=== PATIENT | female | born 1980 | race Caucasian/White ===

== ENCOUNTER 2017-01-02 09:08 | Emergency (ER) | payer BC, OTHER ==
[2017-01-02] MEDS ORDERED: Meclizine TAB* 12.5 MG PO ONE (10:04)
[2017-01-02] MEDS ORDERED: Ondansetron INJ* 2 MG/ML VIAL IV ONE (10:04)
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
[2017-01-02] MEDS ORDERED: Ondansetron ODT TAB* 4 MG SL PRN (11:30)
[2017-01-02 11:33] LABS: Hematocrit 41 % (35-47); Hemoglobin 13.7 g/dl (12.0-16.0); Mean Corpuscular HGB Conc 34 g/dl (31-36); Mean Corpuscular Hemoglobin 31 pg (27-31); Mean Corpuscular Volume 91 fL (80-97); Mean Platelet Volume 9 um3 (7.4-10.4); Red Blood Count 4.48 10^6/ul (4.0-5.4); Red Cell Distribution Width 14 % (10.5-15); White Blood Count 8.9 10^3/ul (3.5-10.8)
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
[2017-01-02 11:48] LABS: ALT 10 U/L (7-52); AST 14 U/L (13-39); Albumin 4.9 g/dL (3.2-5.2); Alkaline Phosphatase 59 U/L (34-104); Anion Gap 7 mmol/L (2-11); BUN/Creatinine Ratio 14.1 (8-20); Blood Urea Nitrogen 9 mg/dL (6-24); C Reactive Protein < 1.00 mg/L (< 5.00); CO2 Carbon Dioxide 25 mmol/L (22-32); Calcium 9.9 mg/dL (8.6-10.3); Chloride 105 mmol/L (101-111); Creatine Kinase 58 U/L (10-223); Globulin 2.9 g/dL (2-4); Glucose 104 mg/dL (70-100); Magnesium 2.1 mg/dL (1.9-2.7); Sodium 137 mmol/L (133-145); Total Protein 7.8 g/dL (6.4-8.9)
[2017-01-02 12:06] VITALS: BP 109/73
[2017-01-02 12:13] LABS: TSH (Thyroid Stimulating Horm) 1.63 mcIU/mL (0.34-5.60)
== END 2017-01-02 12:05 | disposition home or self-care (01) ==
LOC: ED 09:08
DX: S06.0X9A Concussion with loss of consciousness of unspecified duration, initial encounter (principal); R42 Dizziness and giddiness; Z88.0 Allergy status to penicillin; V89.2XXA Person injured in unspecified motor-vehicle accident, traffic, initial encounter; Y92.9 Unspecified place or not applicable; F17.210 Nicotine dependence, cigarettes, uncomplicated
CPT/HCPCS: 36415; 70450; 80053; 82550; 83605; 83735; 84443; 85025; 86140; 93005; 96374; 99283; A9270-GY; J2405

== ENCOUNTER 2017-10-06 07:13 | Emergency (ER) | payer OTHER ==
[2017-10-06 07:24] VITALS: BP 121/66
[2017-10-06] MEDS ORDERED: Albuterol/Ipratropium NEB.SOL* Albuterol 2.5 MG/Ipratropium 0.5 MG 3 ML INH ONE (07:43)
--- NOTE | 2017-10-06 08:05 | RAD ---
INDICATION: Productive cough COMPARISON: February 15, 2015 TECHNIQUE: PA and lateral dual-energy views were obtained. FINDINGS: Bones/Soft Tissues: There are no acute bony findings. Cardiomediastinal: The cardiomediastinal silhouette is normal. Lungs: There are no infiltrates. Pleura: There are no pleural effusions. Other: None IMPRESSION: NO ACTIVE DISEASE.
--- NOTE | 2017-10-06 08:11 | UC ---
Yadiel Romero Tenzin, scribed for Jen Jefferson MD on 10/06/17 at 0744 . General HPI - HPI Summary HPI Summary: Pt is a 37 years old female presenting to the [facility] complaining of constant cough lasting about 12 days. Past couple nights pt notes that the cough has been heavy with pressure feeling on her chest, wheezing, cough with green and yellow sputum. Pt denies fever, nausea or diarrhea. Pt has only taken some cough drops. _ sick contact. no lightheadedness. no n/v/d. No fever. + sick contact. Pt doesn't smoke and drinks two times a week. Pt is not . No aggravating and alleviating factors were noted. Pt's medications reviewed this visit - History of Current Complaint Chief Complaint: UCGeneralIllness Stated Complaint: COUGH Hx Obtained From: Patient Hx Last Menstrual Period: 3 weeks Onset/Duration: Lasting Days - 12 days. Pain Intensity: 0 - Allergy/Home Medications Allergies/Adverse Reactions: Allergies Allergy/AdvReac Type Severity Reaction Status Date / Time amoxicillin Allergy Rash And Verified 10/06/17 07:19 Itching Home Medications: Home Medications Fluticasone Propionate [Flonase Allergy Relief] 1 spray BOTH NARES DAILY [History Confirmed 10/06/17] Multivitamin [Multivitamins] 1 tab PO DAILY 10/06/17 [History Confirmed 10/06/17 ] PMH/Surg Hx/FS Hx/Imm Hx - Additional Past Medical History Additional PMH: NEGATIVE: [place], [place] Previously Healthy: Yes - Surgical History Surgical History: Yes Surgery Procedure, Year, and Place: 11-12,WISDOM TEETH REMOVAL - Family History Known Family History: Positive: Other - NEGATIVE: ASTHMA. - Social History Occupation: Employed Full-time Lives: With Family Alcohol Use: Weekly Substance Use Type: None Smoking Status (MU): Former Smoker Type: Cigarettes Have You Smoked in the Last Year: No - Immunization History Most Recent Influenza Vaccination: 01/25/14 Most Recent Tetanus Shot: 04/17/14 Most Recent Pneumonia Vaccination: none Review of Systems Constitutional: Negative Skin: Negative Eyes: Negative ENT: Negative Respiratory: Cough - green and yellow sputum. Cardiovascular: Negative Gastrointestinal: Negative Genitourinary: Negative Motor: Negative Neurovascular: Negative Musculoskeletal: Negative Neurological: Negative Psychological: Negative All Other Systems Reviewed And Are Negative: Yes Physical Exam - Summary Physical Exam Summary: Vital Signs Reviewed: Yes A+Ox3, no distress Eyes: Conjunctiva Clear, DEMETRIUS. EOM intact and full ENT: Hearing grossly normal TM x 2 clear, mmoist, turbinates boggy + PND uvula midline, no exudate, no erythema Neck: Positive: Supple Respiratory: Positive: coarse cough, scattered wheeze, rhonchi right upper lobe. No accessory muscle use Cardiovascular: RRR nl s1, s2 no m/r CBT <2 sec abd soft + BS nt/nd no guarding, no distension Musculoskeletal Exam: MOORE x 4 without difficulty Strength Intact, ROM Intact Neurological: Positive: Alert, + sensation throughout Psychological: Positive: Normal Response To Family Skin: Positive: no rash, no ecchymosis Triage Information Reviewed: Yes Vital Signs: Initial Vital Signs Temp 97.8 F 10/06/17 07:20 Pulse 83 10/06/17 07:20 Resp 19 10/06/17 07:20 BP 121/66 10/06/17 07:20 Pulse Ox 99 10/06/17 07:20 Diagnostics - Radiology CHEST X RAY Radiology Interpretation Completed By: Radiologist - Impression: NO ACTIVE DISEASE. Re-Evaluation - Re-Evaluation First Eval Re-Evaluation Time: 08:23 Change: Improved - wheezing resolved, tightness resolved. breathing is much better. + BS throughotu abx MDI sammy soto return precautions secretion precautions Course/Dx - Course Course Of Treatment: pt with ongoing cough, tightness and wheezing worse at night. no OTC cough meds second to sedation. rhonci RU+ wheeze and cough. cxr. neb. reassess - Differential Dx - Multi-Symptom Provider Diagnoses: acute bronchitis Discharge - Sign-Out/Discharge Documenting (check all that apply): Discharge/Admit/Transfer - Discharge Plan Condition: Stable Disposition: HOME Prescriptions: Albuterol HFA INHALER* [Ventolin HFA Inhaler*] 1 puff INH Q4H PRN #1 mdi PRN Reason: cough, wheeze Azithromycin TAB* [Zithromax TAB (Z-NALLELY) 250 mg #6 tabs] 2 tab PO .TODAY, THEN 1 DAILY #1 nallely Benzonatate CAP* [Tessalon 100 MG CAP*] 100 mg PO TID PRN #30 cap PRN Reason: Cough Inhaler, Assist Devices [Aerochamber Mv] 1 each MC Q4HR #1 spacer Patient Education Materials: Acute Bronchitis (ED) Referrals: Ayde Pérez MD [Primary Care Provider] - Additional Instructions: - Take antibiotics exactly as prescribed until gone -Use your albuterol puffer - 2 puffs ever 4 hours for the next 2 days - then as needed -Stay well hydrated - avoid excess caffeine and all alcohol - eat regular, healthy meals - It is okay to take over the counter cough and decongestant medication as needed (Robitussin, Dayquil, Nyquil) - These infections are spread by oral secretions. Do not share eating or drinking utensils. Frequent hand washing is important. Clean items that may get your secretions on them such as cell phones, ipads, computer mouse, television remotes. Once you have been on antbiotics for 2 days, change your pillowcase and your toothbrush. -Call your doctor, return here or go to the emergency department with any questions or concerns - Billing Disposition and Condition Condition: STABLE Disposition: Home The documentation as recorded by the Yadiel [email or web address] Tenzin accurately reflects the service I personally performed and the decisions made by me, Jen Jefferson MD.
== END 2017-10-06 08:34 | disposition home or self-care (01) ==
LOC: UCEAST 07:13
DX: J20.9 Acute bronchitis, unspecified (principal); Z88.0 Allergy status to penicillin; Z87.891 Personal history of nicotine dependence
CPT/HCPCS: 71046; 99212; A9270-GY; G0463

== ENCOUNTER 2018-07-09 15:19 | Emergency (ER) | payer OTHER ==
[2018-07-09 16:26] VITALS: BP 110/66
[2018-07-09 17:09] LABS: Influenza A Molecular NEGATIVE (Negative); Influenza B Molecular NEGATIVE (Negative)
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
== END 2018-07-09 17:47 | disposition home or self-care (01) ==
LOC: UCEAST 15:19
DX: B34.9 Viral infection, unspecified (principal); J06.9 Acute upper respiratory infection, unspecified; Z87.891 Personal history of nicotine dependence; Z88.0 Allergy status to penicillin
CPT/HCPCS: 87651; 99211; G0463